=== PATIENT | male | born 1970 | race Caucasian/White ===

== ENCOUNTER 2016-07-25 08:44 | Day surgery (SDC) | payer OTHER ==
[~2016-07-25 08:44] MED LIST: Lactated Ringers 1,000 ML IV SCH
--- NOTE | 2016-07-25 09:24 | PCM.PREANE ---
Preanesthetic Assessment - Anesthesia/Transfusion/Family Hx Anesthesia History: Prior Anesthesia Without Reaction Transfusion History: No Prior Transfusion(s) - Physical Assessment Height: 1.73 m Weight: 95.708 kg - Allergies Allergies/Adverse Reactions: Allergies Allergy/AdvReac Type Severity Reaction Status Date / Time No Known Allergies Allergy Verified 07/21/16 07:59 PreAnesthesia Questionnaire Gastrointestinal History: Reports: GERD Musculoskeletal History: Reports: Other (see below) Other Musculoskeletal History: scoliosis Psychiatric History: Reports: Depression Endocrine/Metabolic History: Reports: Obesity/BMI 30+ - Past Surgical History Head Surgeries/Procedures: Reports: None (right) GI Surgical History: Reports: Appendectomy, Hernia, inguinal - SUBSTANCE USE Smoking Status *Q: Current Every Day Smoker (1-2 ppd) Tobacco Use Within Last Twelve Months: Cigarettes Recreational Drug Use History: No - HOME MEDS Home Medications: Home Meds Omeprazole 20 mg PO DAILY 07/21/16 [History] - CURRENT (IN HOUSE) MEDS Current Meds: Current Medications Lactated Ringer's (Ringers, Lactated) 1,000 mls @ 125 mls/hr IV ASDIRECTED [facility] Preanesthetic Assessment - ANESTHESIA/TRANSFUSION/FAMILY HX Anesthesia/Transfusion History: Prior Anesthesia Type of Anesthesia Reaction: Denies: Allergy, Anesthesia Awareness, Excessive Somnolence, Excessive Nausea/Vomiting, Excessive Itching, Excessive Shivering, Malignant Hyperthermia, Malignant Hyperthermia, Family History, Pseudocholinesterase Deficiency, Pseudocholinesterase Deficiency, Family History of, Urinary Retention, Unknown, Other (see below) Family History of Anesthesia Reaction: No Other Intubation History Comment: no known problems - REVIEW OF SYSTEMS Constitutional: Reports: no symptoms RD PROJECT MANAGER: Reports: no symptoms Respiratory: Reports: no symptoms Cardiovascular: Reports: no symptoms Other: Reports: None - PHYSICAL ASSESSMENT Height: 1.73 m Weight: 95.708 kg ASA Class: 2 Mental Status: Alert & Oriented x3 Airway Class: Mallampati = 2 Dentition: Reports: Normal Dentition Thyro-Mental Finger Breadths: 3 Mouth Opening Finger Breadths: 2 ROM/Head Extension: Full Respiratory Status: lungs clear to auscultation bilaterally Cardiovascular Status: regular rate & rhythm, normal S1, S2, no murmur, blood pressure WNL - ALLERGIES Allergies/Adverse Reactions: Allergies Allergy/AdvReac Type Severity Reaction Status Date / Time No Known Allergies Allergy Verified 07/21/16 07:59 - BLOOD Blood Available: No - ANESTHESIA PLAN Preop Beta Tory: No Anesthesia Type Planned: MAC - ACKNOWLEDGEMENTS Pt an Appropriate Candidate for the Planned Anesthesia: Yes Alternatives and Risks of Anesthesia Discussed w Pt/Guardian: Yes Pt/Guardian Understands and Agrees with Anesthesia Plan: Yes
[2016-07-25] MEDS ORDERED: Midazolam 1 MG/ML 2 ML SDV ONE (09:59)
[2016-07-25] MEDS ORDERED: Lidocaine 2% 5 ML SDV ONE (09:59)
[2016-07-25] MEDS ORDERED: fentaNYL 100 MCG/2 ML SDV ONE (09:59)
[2016-07-25] MEDS ORDERED: Propofol 200 MG/20 ML SDV ONE ×2 (09:59→10:18)
--- NOTE | 2016-07-25 10:43 | PCM.OPNOTE ---
- General Post-Op/Procedure Note Date of Surgery/Procedure: 07/25/16 Operative Procedure(s): egd w bx. colonoscopy w bx Findings: see dict [id number] Pre Op Diagnosis: abd pain Post-Op Diagnosis: colon polyp and gerd Anesthesia Technique: Moderate sedation Primary Surgeon: Nick Valenzuela Pathology: 1) egd bx 2) colon sessile polyp 3 mm at 40cm when scope went in and cecum bx Complications: None Condition: Good
--- NOTE | 2016-07-25 10:52 | PCM.POSTAN ---
POST ANESTHESIA ASSESSMENT - MENTAL STATUS Mental Status: alert, oriented - RESPIRATORY Respiratory Status: respiratory rate WNL, airway patent, O2 saturation stable - CARDIOVASCULAR CV Status: pulse rate WNL, blood pressure stable - GASTROINTESTINAL GI Status: no symptoms - POST OP HYDRATION Hydration Status: adequate & stable - OBSERVATIONS Free Text/Narrative:: no anesthesia problems
--- NOTE | 2016-07-25 11:22 | OR ---
SURGEON: Nick Valenzuela MD DATE OF PROCEDURE: 07/25/2016 PREOPERATIVE DIAGNOSIS: Abdominal pain. POSTOPERATIVE DIAGNOSES: EGD diagnosis is acid reflux and colonoscopy diagnosis is colon polyp. COMPLICATIONS: None. PROCEDURE PERFORMED: EGD with biopsy and colonoscopy with biopsy. DESCRIPTION OF PROCEDURE: EGD: The patient was taken to the endoscopy room, and with the ETYMOLOGY TEACHER, Diprivan was administered. A well-lubricated EGD scope was gently inserted through the oropharynx, down the esophagus, passing through the gastroesophageal junction, into the stomach. The mucosa was examined upon the passage. Any etiology will be noted. Once in the stomach, we continued to advance to the distal antrum, passed through the pylorus into the second portion of the duodenum. Again, the mucosa was examined for any abnormality and etiology. The scope was then retrieved back to the stomach and then retroflexed to look at the fundus of the stomach. If a biopsy was indicated, we will biopsy the antrum, body, and gastroesophageal junction. The air will be sucked out while the scope is retrieved to reduce the patient's discomfort. The patient tolerated the procedure well. There were no intraoperative complications. Dr. Valenzuela was present through the whole procedure. Prior to surgery, a time-out had been called, the patient identified, procedure identified and antibiotic administered. Colonoscopy: The patient was taken to the endoscopy room. A time out was called, patient identified, and procedure identified. Diprivan was then administrated. Patient went from awake to sleep, hearing doctor talking or door closing is normal. Perineum inspection and digital examination were then performed. A well-lubricated colonoscope was gently inserted through the rectum, advanced past the rectosigmoid junction, the descending colon, splenic flexure, transverse colon, hepatic flexure, ascending colon, arrived to the cecum. Cecum was identified as dictated in the finding. Then the scope was carefully withdrawn while attention was paid to the mucosal surface for any abnormality. Air will be sucked out during the scope withdrawal. At the rectum, retroflexed to examine any rectal diseases, fistula or hemorrhoids. During mucosal examination, abnormality or polyp was noted; picture taken and biopsy performed. Patient tolerated procedure well. There were no intraoperative complications, and Dr. Valenzuela was present throughout the whole procedure. FINDINGS: EGD finding: The patient is easily sedated with ETYMOLOGY TEACHER and Diprivan. The patient is soundly snoring. Oropharynx and proximal esophagus are normal in appearance and distal esophagus at 40 cm. Proximal esophagus is free of disease. No stricture, varicosity, or inflammation observed. GE junction at 40 with salmon color change consistent with acid reflux. Stomach rugae is normal in appearance. There is no bile or food particle in the stomach. No ulceration or bleeding observed. Antrum is mildly inflamed. Duodenum is grossly normal in appearance and the scope retrieved back to the stomach and retroflexed to look at the stomach. There is no hiatal hernia. Biopsy done at antrum, GE junction at 40, and body and sucked out air while scope pulling out. Colonoscopy finding. 1. The patient is easily sedated with ETYMOLOGY TEACHER and Diprivan. The patient is soundly snoring. 2. The patient's bowel prep is average with moderate amount of liquid stool. No semi-formed stool. 3. The patient's colon is rather straight forward. Cecum indicated by ileocecal fold, one-to-one indentation, light immittance, appendiceal orifice. Mucosa was examined upon scope pulling out. The patient has large amount of diverticulosis. No signs or symptoms of diverticulitis. The patient has a small polyp. The diverticulosis is concentrated on the left colon all the way up to the splenic flexure and there is a small polyp 3 mm sessile polyp at distance 40 cm, removed with cold biopsy forceps. Cecum indicated by ileocecal fold, one-to-one indentation, appendiceal orifice, and light immittance. There is no other growth, inflammation, stricture, ulceration, or bleeding observed. We do observe some pulsating situation at the hepatic flexure and rectum consistent with possible portal hypertension. The patient has some internal hemorrhoids and no external hemorrhoids. Random biopsy of the right colon was done because of abdominal pain. The patient would benefit from repeat colonoscopy 3 years from today or if clinically indicated otherwise or the pathology or the random biopsy indicated otherwise. As always, thank you for the kind referral. DHEERAJ / FIOR /[id number]
[2016-07-25 11:28] VITALS: BP 123/50
== END 2016-07-25 11:12 | disposition home or self-care (01) ==
LOC: MW.SDS 08:44
PROVIDERS: ATTEND Surgery
PROC: 0DBE8ZX Excision of Large Intestine, Via Natural or Artificial Opening Endoscopic, Diagnostic (ICD-10-PCS; principal; 2016-07-25)
PROC: 0DB68ZX Excision of Stomach, Via Natural or Artificial Opening Endoscopic, Diagnostic (ICD-10-PCS; 2016-07-25)
DX: D12.6 Benign neoplasm of colon, unspecified (principal); K64.8 Other hemorrhoids; K21.0 Gastro-esophageal reflux disease with esophagitis; K29.50 Unspecified chronic gastritis without bleeding; F32.9 Major depressive disorder, single episode, unspecified; Z87.19 Personal history of other diseases of the digestive system; F17.210 Nicotine dependence, cigarettes, uncomplicated
CPT/HCPCS: 43239; 45380; J2250; J3010; J7120; 00740; 88305; 88312; J2704

== ENCOUNTER 2019-12-19 07:31 | Day surgery (SDC) | payer OTHER ==
[~2019-12-19 07:31] MED LIST changes: +Lidocaine 2% 5 ML SDV ONE; +Midazolam 1 MG/ML 2 ML SDV ONE; +Propofol 200 MG/20 ML SDV ONE; +fentaNYL 100 MCG/2 ML SDV ONE
--- NOTE | 2019-12-19 07:57 | PCM.PREANE ---
Preanesthetic Assessment - Anesthesia/Transfusion/Family Hx Anesthesia History: Prior Anesthesia Without Reaction Family History of Anesthesia Reaction: No Transfusion History: No Prior Transfusion(s) - Review of Systems General: No Symptoms Pulmonary: No Symptoms Cardiovascular: No Symptoms Neurological: No Symptoms Other: Reports: None - Physical Assessment NPO Status Date: 12/18/19 Height: 5 ft 8 in Weight: 97.069 kg ASA Class: 2 Airway Class: Mallampati = 2 Dentition: Reports: Normal Dentition ROM/Head Extension: Full Lungs: Clear to Auscultation, Normal Respiratory Effort Cardiovascular: Regular Rate, Regular Rhythm - Allergies Allergies/Adverse Reactions: Allergies Allergy/AdvReac Type Severity Reaction Status Date / Time No Known Allergies Allergy Verified 12/16/19 13:47 - Blood Blood Available: No - Anesthesia Plan Pre-Op Medication Ordered: None - Acknowledgements Anesthesia Type Planned: General Anesthesia (tiva) Pt an Appropriate Candidate for the Planned Anesthesia: Yes Alternatives and Risks of Anesthesia Discussed w Pt/Guardian: Yes Pt/Guardian Understands and Agrees with Anesthesia Plan: Yes Additional Comments: PMH: gerd, smoking PLAN: tiva PreAnesthesia Questionnaire HEENT History: Reports: None Cardiovascular History: Reports: None Respiratory History: Reports: None Gastrointestinal History: Reports: Colon Polyp Other Gastrointestinal History: some GERD in the past- not recently Genitourinary History: Reports: None Musculoskeletal History: Reports: Other (See Below) Other Musculoskeletal History: scoliosis Neurological History: Reports: None Psychiatric History: Reports: Depression Endocrine/Metabolic History: Reports: Obesity/BMI 30+ Hematologic History: Reports: None Immunologic History: Reports: None Oncologic (Cancer) History: Reports: None Dermatologic History: Reports: None - Past Surgical History Head Surgeries/Procedures: Reports: None GI Surgical History: Reports: Appendectomy, Colonoscopy, EGD, Hernia, Inguinal - SUBSTANCE USE Smoking Status *Q: Current Every Day Smoker Tobacco Use Within Last Twelve Months: Cigarettes Recreational Drug Use History: No - HOME MEDS Home Medications: Home Meds buPROPion HCL [Bupropion HCl Sr] 150 mg PO DAILY 07/28/19 [History] - CURRENT (IN HOUSE) MEDS Current Meds: Current Medications Lactated Ringer's (Ringers, Lactated) 1,000 mls @ 125 mls/hr IV ASDIRECTED [facility] Last Admin: 12/19/19 07:50 Dose: 125 mls/hr Documented by: Discontinued Medications Fentanyl (Sublimaze) Confirm Administered Dose 100 mcg .ROUTE .STK-MED ONE Stop: 12/19/19 07:00 Lidocaine (Xylocaine-Mpf 2%) Confirm Administered Dose 5 ml .ROUTE .STK-MED ONE Stop: 12/19/19 07:00 Midazolam HCl (Versed 1 Mg/Ml) Confirm Administered Dose 2 mg .ROUTE .STK-MED ONE Stop: 12/19/19 07:00 Propofol (Diprivan 20 Ml) Confirm Administered Dose 400 mg .ROUTE .STK-MED ONE Stop: 12/19/19 07:00
[2019-12-19] MEDS ORDERED: Glycopyrrolate 0.2 MG/ML SDV ONE (08:58)
[2019-12-19] MEDS ORDERED: fentaNYL 100 MCG/2 ML SDV ONE (09:09)
[2019-12-19] MEDS ORDERED: Propofol 200 MG/20 ML SDV ONE (09:10)
--- NOTE | 2019-12-19 09:50 | PCM.OPNOTE ---
- General Post-Op/Procedure Note Date of Surgery/Procedure: 12/19/19 Operative Procedure(s): egd w bx. colonoscopy Findings: see [id number] Pre Op Diagnosis: abd pain and polyp hx Post-Op Diagnosis: Same Anesthesia Technique: Moderate Sedation Primary Surgeon: Nick Valenzuela Pathology: egd bx Complications: None Condition: Good
[2019-12-19 10:26] VITALS: BP 105/57; PULSE 71
--- NOTE | 2019-12-19 10:47 | PCM.POSTAN ---
POST ANESTHESIA ASSESSMENT - MENTAL STATUS Mental Status: Alert, Oriented - VITAL SIGNS Vital Signs: Last Vital Signs Temp 98.2 F 12/19/19 10:00 Pulse 71 12/19/19 10:00 Resp 14 12/19/19 10:00 BP 105/57 L 12/19/19 10:00 Pulse Ox 94 L 12/19/19 10:00 - RESPIRATORY Respiratory Status: Respiratory Rate WNL, Airway Patent, O2 Saturation Stable - CARDIOVASCULAR CV Status: Pulse Rate WNL, Blood Pressure Stable - GASTROINTESTINAL GI Status: No Symptoms - POST OP HYDRATION Hydration Status: Adequate & Stable
--- NOTE | 2019-12-19 10:48 | PCM48HPAN ---
Post Anesthesia Note - EVALUATION WITHIN 48HRS OF ANESTHETIC Vital Signs in Normal Range: Yes Patient Participated in Evaluation: Yes Respiratory Function Stable: Yes Airway Patent: Yes Cardiovascular Function Stable: Yes Hydration Status Stable: Yes Pain Control Satisfactory: Yes Nausea and Vomiting Control Satisfactory: Yes Mental Status Recovered: Yes Vital Signs: Last Vital Signs Temp 98.2 F 12/19/19 10:00 Pulse 71 12/19/19 10:00 Resp 14 12/19/19 10:00 BP 105/57 L 12/19/19 10:00 Pulse Ox 94 L 12/19/19 10:00
--- NOTE | 2019-12-19 11:50 | OR ---
SURGEON: Nick Valenzuela MD DATE OF PROCEDURE: 12/19/2019 PREOPERATIVE DIAGNOSES: Abdominal pain and colon polyp history. POSTOPERATIVE DIAGNOSES: Abdominal pain and colon polyp history. PROCEDURES PERFORMED: 1. Esophagogastroduodenoscopy with biopsy. 2. Colonoscopy. DESCRIPTION OF PROCEDURE: EGD: The patient was taken to the endoscopy room, and with the LONG TERM CARE PHARMACIST, Diprivan was administered. A well-lubricated EGD scope was gently inserted through the oropharynx, down the esophagus, passing through the gastroesophageal junction, into the stomach. The mucosa was examined upon the passage. Any etiology will be noted. Once in the stomach, we continued to advance to the distal antrum, passed through the pylorus into the second portion of the duodenum. Again, the mucosa was examined for any abnormality and etiology. The scope was then retrieved back to the stomach and then retroflexed to look at the fundus of the stomach. If a biopsy was indicated, we will biopsy the antrum, body, and gastroesophageal junction. The air will be sucked out while the scope is retrieved to reduce the patient's discomfort. The patient tolerated the procedure well. There were no intraoperative complications. Dr. Valenzuela was present through the whole procedure. Prior to surgery, a time-out had been called, the patient identified, procedure identified and antibiotic administered. The patient was taken to the endoscopy room. A time out was called, patient identified, and procedure identified. Diprivan was then administrated. Patient went from awake to sleep, hearing doctor talking or door closing is normal. Perineum inspection and digital examination were then performed. A well- lubricated colonoscope was gently inserted through the rectum, advanced past the rectosigmoid junction, the descending colon, splenic flexure, transverse colon, hepatic flexure, ascending colon, arrived to the cecum. Cecum was identified as dictated in the finding. Then the scope was carefully withdrawn while attention was paid to the mucosal surface for any abnormality. Air will be sucked out during the scope withdrawal. At the rectum, retroflexed to examine any rectal diseases, fistula or hemorrhoids. Patient tolerated procedure well. There were no intraoperative complications, and Dr. Valenzuela was present throughout the whole procedure. FINDINGS: EGD findings: 1. The patient is easily sedated with LONG TERM CARE PHARMACIST and Diprivan, the patient is soundly snoring. 2. Oropharynx and proximal esophagus are free of disease, stricture, or inflammation. Distal esophagus at GE junction at 40 shows a moderate amount of salmon-colored change, suggests GERD. Stomach rugae are normal in appearance and antrum has a couple of specks of dry blood, suggests gastritis. Duodenum, in the first part of the duodenum, duodenal bulb has duodenitis and is very pliable. Just a touch, it bleeds, consistent with inflammatory change. There is no fabian ulcer or blood, none of those. Retrieved back to the stomach, looked at the fundus of the stomach, there is no hiatal hernia, but noticed that in the greater curvature and in the cardiac incisura, there are several specks of chocolate colored blood. There is no fabian ulcer, but several areas like that, and two of them are biopsied. There is no food particle or bile observed. Biopsy done at antrum, body, GE junction at 40 plus the two areas in the greater curvature and the incisura hemorrhaging were biopsied. It is not really hemorrhaging, but is a chocolate color covering the mucosa and do not see any ulcers anyway. Sucked out the gas while scope pulling out. During the whole study, there is no food particle or bile observed or fabian ulcer observed. Colonoscopy findings: 1. The patient is easily sedated with LONG TERM CARE PHARMACIST and Diprivan, the patient is soundly snoring. 2. Bowel prep is average with moderate amount of liquid stool and couple of stool ball, no semi-formed stool. Colon rather straightforward. Cecum indicated by ileocecal fold, one-to-one indentation, appendiceal orifice, and light emittance is not observed. Only the light emittance is not observed, the other three things are observed. ScopeGuide is pointing south. Mucosa examined upon scope pulling out with some irrigation. The patient has moderate amount of diverticulosis on the left colon, some of them at the false lumen is as big as the true lumen, quite a lot of diverticula. No signs or symptoms of diverticulitis. No polyp, inflammation, stricture, ulceration, AV malformation, bleeding, none of those observed. The patient has mild internal hemorrhoids, no external hemorrhoids. The patient would benefit from repeat colonoscopy in 10 years from today or if clinically indicated otherwise. DHEERAJ / FIOR /[id number]
== END 2019-12-19 10:25 | disposition home or self-care (01) ==
LOC: MW.SDS 07:31
PROVIDERS: ATTEND Surgery
DX: Z12.11 Encounter for screening for malignant neoplasm of colon (principal); K64.8 Other hemorrhoids; K29.50 Unspecified chronic gastritis without bleeding; K31.89 Other diseases of stomach and duodenum; K29.80 Duodenitis without bleeding; F32.9 Major depressive disorder, single episode, unspecified; F17.210 Nicotine dependence, cigarettes, uncomplicated; K57.30 Diverticulosis of large intestine without perforation or abscess without bleeding; E66.9 Obesity, unspecified; K21.9 Gastro-esophageal reflux disease without esophagitis; Z79.899 Other long term (current) drug therapy; Z86.010 Personal history of colon polyps; Z98.890 Other specified postprocedural states; Z68.32 Body mass index [BMI] 32.0-32.9, adult
CPT/HCPCS: 43239; 45378; J2001; J2250; J2704; J3010; J3490; J7120; 00813; 88305; 88312